=== PATIENT | female | born 1980 | race Caucasian/White ===

== ENCOUNTER 2023-06-18 20:55 | Emergency (ER) | payer SELFPAY ==
[2023-06-18] VITALS (10 sets, daily range): BP systolic 193–261; BP diastolic 109–150; PULSE 72–100; RESP 11–20; TEMP 36.9; O2SAT 99–100
--- NOTE | ~2023-06-18 | CT_ITS ---
EXAMINATION: CT brain wo con INDICATION: Headache, hypertension COMPARISON: None TECHNIQUE: Standard unenhanced head CT. The dose-length product (DLP) was 605.33 mGy-cm. The mA was a djusted according to patient size. Iterative reconstruction technique was employed. FINDINGS: There is no intracranial hemorrhage, acute infarction, or abnormal mass lesion. The ventric les are normal. There is no abnormal mass effect or midline shift. The castañeda-white matter differentiat ion is normal. The basal cisterns are patent. The orbits are normal. The paranasal sinuses, mastoids and calvarium are normal. IMPRESSION: 1. No acute intracranial abnormality. Reviewed, dictated and finalized at location F.
--- NOTE | 2023-06-18 21:11 | ECG_ITS ---
Measurements Intervals [place] Rate: 87 P: 23 MA: 115 QRS: -2 QRSD: 81 T: 31 QT: 344 QTc: 415 Interpretive Statements SINUS RHYTHM WITH SHORT MA INTERVAL VOLTAGE CRITERIA FOR LVH WITH SECONDARY REPOLARIZATION ABNORMALITY BORDERLINE ECG NO PREVIOUS ECG AVAILABLE FOR COMPARISON Electronically Signed On 06-19-2023 12:56:36 CDT by Michael Mcdonald M.D.
[2023-06-18 21:58] LABS: Basophils Absolute Auto 0.1 K/mm3 (0.0-0.1); Basophils Percent Auto 0.3 % (0.2-1.2); Eosinophils Absolute Auto 0.5 K/mm3 (0-0.3); Eosinophils Percent Auto 3.5 % (0-4.4); Hematocrit 46.1 % (37.0-47.0); Hemoglobin 15.5 g/dL (12.0-15.0); Immature Granulocyte Absolute 0.04 K/mm3 (0.00-0.031); Immature Granulocyte Percent A 0.3 % (0-0.5); Lymphocytes Absolute Auto 4.96 K/mm3 (0.9-3.2); Lymphocytes Percent Auto 33.7 % (18.3-44.2); Mean Corpuscular HGB Conc 33.6 g/dl (32-36); Mean Corpuscular Volume 86.3 fl (80-100); Mean Platelet Volume 10.5 fl (7.4-10.4); Monocytes Percent Auto 6.8 % (2.6-8.5); Neutrophils Absolute Auto 8.1 K/mm3 (1.3-6.7); Neutrophils Percent Auto 55.4 % (45.5-73.1); Platelet Count Result 442 k/mm3 (150-375); Red Blood Count 5.34 M/mm3 (4.2-5.4); Red Cell Distribution Width 14.6 % (11.5-14.5); White Blood Count 14.7 K/mm3 (4.5-10.0)
[2023-06-18 22:03] LABS: Appearance Urine Clear (Clear); Bacteria Urine 1+ /hpf; Bilirubin Urine Negative (Negative); Color Urine Yellow (Yellow); Glucose Urine UA Negative (Negative); Ketones Urine Negative (Negative); Leukocyte Esterase Ur 1+ LEU/UL (Negative); Nitrate Urine Negative (Negative); Non Pathogenic Casts 0-2; Protein Urine Negative (Negative); RBC Urine 0-2 /hpf (0-2); Squamous Epithelial Cell Urine None seen /hpf (Few); Urobilinogen Urine 0.2 mg/dL (<2.0); WBC Urine 21-50 /hpf; pH Urine 7.5 (5.0-9.0)
[2023-06-18 22:05] LABS: Alanine Aminotransferase 24 U/L (6-35); Albumin Level 4.9 g/dL (3.5-5.1); Alkaline Phosphatase 77 U/L (38-126); Anion Gap 4 mmol/L (8-16); Aspartate Amino Transferase 29 U/L (14-36); Bilirubin,Total 1.1 mg/dL (0.2-1.3); Blood Urea Nitrogen 11 mg/dL (7-17); Calcium 9.8 mg/dL (8.4-10.2); Carbon Dioxide 32 mmol/L (22-30); Chloride 99 mmol/L (98-107); Estimated CRCL calculation 72 ml/min; Estimated Glomerular Filt Rate > 60; Glucose 95 mg/dL (65-110); Sodium 135 mmol/L (137-145)
[2023-06-18 22:07] LABS: Add Urine Microscopic? YES
[2023-06-18 22:09] LABS: Pregnancy On Board Control Positive; Urine Pregnancy Test Negative
[2023-06-18] MEDS: SODIUM CHLORIDE 0.9% IV 1,000 ML 999 ML IV CONT (22:13)
[2023-06-18] MEDS: KETOROLAC 30 MG/ML VIAL (*BKC) IV PUSH (22:14)
[2023-06-18] MEDS: PROCHLORPERAZINE EDISYLATE 10 MG/2 ML VIAL IV PUSH (22:14)
[2023-06-18] MEDS: diphenhydrAMINE HCl INJ 50 MG/ML VIAL IV PUSH (22:14)
[2023-06-18] MEDS: hydrALAZINE HCL 20 MG/ML VIAL 10 MG IV PUSH (22:38)
[2023-06-18] MEDS: LABETALOL HCL INJ 100 MG/20 ML VIAL 20 MG IV PUSH (23:27)
--- NOTE | 2023-06-18 23:46 | ED.GENADULT ---
HPI - General Adult General Chief complaint: Headache Stated complaint: headache,high bp Time Seen by Provider: 06/18/23 21:14 History of Present Illness HPI narrative: Patient 43-year-old female who presents the emergency department with chief complaint of headache and hypertension. The patient reports that she has had a history of migraines and reports she had her typical migraine and went to see her primary doctor her blood pressure was in the 190s and reports that she did not receive the Toradol due to her pressure being high. Patient reports that she is continue to have a headache and reports that she has never been documented as having elevated blood pressure but does not normally check her blood pressure. Patient reports no weakness in her arms or legs denies focal neurological deficit. Related Data Allergies Allergy/AdvReac Type Severity Reaction Status Date / Time No Known Allergies Allergy Verified 06/18/23 22:00 Review of Systems Review of Systems: A 10 system review of systems was completed on the patient and is negative except for what is stated in the HPI. Nursing and ancillary documentation was reviewed. Exam Narrative: GENERAL: Well-appearing, well-nourished, and in no acute distress. HEAD: Normocephalic, atraumatic. EYES: PERRLA and EOMI. ENT: Nares clear, no rhinorrhea or epistaxis. Mucous membranes moist. NECK: Supple. CHEST: Clear to auscultation. No respiratory distress. HEART: Regular rate and rhythm. No murmur heard. Normal peripheral pulses. ABDOMEN: Soft, nontender, nondistended, normal active bowel sounds. EXTREMITIES: Normal range of motion. No edema. SKIN: Warm, dry, no rash. NEURO: No focal deficits. Alert and oriented x3. PSYCH: Normal mood and affect. Course Vital Signs Vital signs: Vital Signs Temperature 36.9 C 06/18/23 20:56 Pulse Rate 100 06/18/23 20:56 Respiratory Rate 16 06/18/23 20:56 Blood Pressure 261/119 H 06/18/23 20:56 Pulse Oximetry 99 06/18/23 20:56 Oxygen Delivery Room Air 06/18/23 20:56 Temperature 36.9 C 06/18/23 20:56 Pulse Rate 78 06/18/23 23:12 Respiratory Rate 12 06/18/23 23:12 Blood Pressure 193/109 H 06/18/23 23:34 Pulse Oximetry 100 06/18/23 23:12 Oxygen Delivery Room Air 06/18/23 20:56 Medical Decision Making MDM Narrative Medical decision making narrative: Differential diagnosis includes intracranial hemorrhage, hypertensive crisis, hypertensive emergency, migraine headache with hypertension Patient's headache was treated and the patient basically reports that almost complete resolution in her headache CT head showed no evidence of hemorrhage Laboratory studies did show evidence of slight urinary tract infection otherwise within normal limits. Patient's blood pressure did come down after being treated with antihypertensives. Patient was started on lisinopril With urinary tract infection the patient was started on Keflex. Vital Signs Vital Signs: Vital Signs Temperature 36.9 C 06/18/23 20:56 Pulse Rate 100 06/18/23 20:56 Respiratory Rate 16 06/18/23 20:56 Blood Pressure 261/119 H 06/18/23 20:56 Pulse Oximetry 99 06/18/23 20:56 Oxygen Delivery Room Air 06/18/23 20:56 Temperature 36.9 C 06/18/23 20:56 Pulse Rate 78 06/18/23 23:12 Respiratory Rate 12 06/18/23 23:12 Blood Pressure 193/109 H 06/18/23 23:34 Pulse Oximetry 100 06/18/23 23:12 Oxygen Delivery Room Air 06/18/23 20:56 Lab Data 06/18/23 21:44 06/18/23 21:44 Labs: Lab Results 06/18/23 06/18/23 Range/Units 21:43 21:44 WBC 14.7 H (4.5-10.0) K/mm3 RBC 5.34 (4.2-5.4) M/mm3 Hgb 15.5 H (12.0-15.0) g/dL Hct 46.1 (37.0-47.0) % MCV 86.3 (80-100) fl MCH 29.0 (26-34) pg MCHC 33.6 (32-36) g/dl RDW 14.6 H (11.5-14.5) % Plt Count 442 H (150-375) k/mm3 MPV 10.5 H (7.4-10.4) fl Immature Gran % (Auto) 0.3 (0-0.5
[2023-06-19] MEDS: lisinopriL 20 MG TABLET PO (00:03)
[2023-06-19] MEDS: CEPHALEXIN 500 MG CAPSULE PO (00:03)
[2023-06-19 00:07] VITALS: BP 205/123
== END 2023-06-19 00:25 | disposition home or self-care (01) ==
PROVIDERS: Emergency Provider Emergency Medicine; PCP Family Medicine
DX: R51.9 Headache, unspecified (principal); I10 Essential (primary) hypertension; N39.0 Urinary tract infection, site not specified
CPT/HCPCS: 36415; 70450; 80053; 81001; 81025; 85025; 87077; 87086; 87186; 93005; 96361; 96374; 96375; 99284; A9270; J0360; J0780; J1200; J1885; J7030

== ENCOUNTER 2024-08-05 02:36 | Emergency (ER) | payer SELFPAY ==
[2024-08-05 02:44] VITALS: BP 131/91; PULSE 80; RESP 19; TEMP 36.3; O2SAT 100
== END 2024-08-05 05:32 | disposition left against medical advice (07) ==
LOC: ANHED 04:48
PROVIDERS: PCP Family Medicine
DX: S49.92XA Unspecified injury of left shoulder and upper arm, initial encounter (principal)
CPT/HCPCS: 99199